=== PATIENT | male | born 1955 | race African-American/Black ===

== ENCOUNTER 2017-06-21 18:51 | Emergency (ER) | payer OTHER ==
[~2017-06-21] VITALS: Ht 182.9 cm; Wt 72.6 kg
--- NOTE | ~2017-06-21 | CR150 ---
[facility] A Service of [facility] & [facility] RADIOLOGY TEXT RESULTS PATIENT: KIANA BHAT LOCATION: CFTX : 53 UNIT #: [id number] AGE: [address]: Krystal Ellsworth SEX: M ORDER DR: [id number] [facility] [address] [place], [place] [address] [id number] E MR#: [id number] Acc #: [id number] NAME: KIANA BHAT : 1955 SEX: M STUDY DATE/TIME: 06/21/2017 20:38 UNIT: [facility] ROOM: STUDY DESCRIPTION: CR Hip Min 2 Views Lt Attending Physician: Krystal Ellsworth Pa-C Ordering Physician: Krystal Ellsworth Pa-C Primary Care Physician: Primary Care Physician No MEDICAL IMAGING REPORT This report is preliminary unless electronic signature is present EXAM Left hip HISTORY Left hip pain for 6 days after fall. TECHNIQUE AP view pelvis and lateral view left hip obtained. FINDINGS Extensive vascular stents in the iliac arteries and on the left side, stents extend down the common femoral region. There is no hip fracture visible. There is degenerative change in the left hip with osteophyte formation. IMPRESSION Bilateral hip degenerative changes. No fracture visible. Dictated by... Parker Anglin M.D. THIS IS AN ELECTRONICALLY VERIFIED REPORT Parker Anglin M.D. at 06/22/2017 7:58 PM FEL/pcl TD: 06/22/2017 17:27 JOB #: [id number] MEDICAL IMAGING REPORT Page 1 of 1 COPY
--- NOTE | ~2017-06-21 | CR181 ---
[facility] A Service of [facility] & [facility] RADIOLOGY TEXT RESULTS PATIENT: KIANA BHAT LOCATION: CFTX : 53 UNIT #: [id number] AGE: [address]: Krystal Ellsworth SEX: M ORDER DR: [id number] [facility] [address] [place], [place] [address] [id number] E MR#: [id number] Acc #: [id number] NAME: KIANA BHAT : 1955 SEX: M STUDY DATE/TIME: 06/21/2017 20:41 UNIT: [facility] ROOM: STUDY DESCRIPTION: CR Lumbar Spine 2 or 3 Views Attending Physician: Krystal Ellsworth Pa-C Ordering Physician: Krystal Ellsworth Pa-C Primary Care Physician: No Primary Care Physician MEDICAL IMAGING REPORT This report is preliminary unless electronic signature is present EXAM Lumbar spine, three-view series. INDICATIONS Fall 6 days ago with low back pain. FINDINGS Three views of the lumbar spine were obtained. There is some anterior ossified formation at L3-4 and 4-5. There is no fracture or subluxation. IMPRESSION Mild degenerative changes. No evidence of acute injury. Dictated by... Parker Anglin M.D. THIS IS AN ELECTRONICALLY VERIFIED REPORT Parker Anglin M.D. at 06/22/2017 7:58 PM KAILA/christian TD: 06/22/2017 17:56 JOB #: [id number] MEDICAL IMAGING REPORT Page 1 of 1 COPY
[2017-06-21] MEDS ORDERED: COREG6.25 M1 PO (20:32)
[2017-06-21] MEDS ORDERED: AMBIEN10 MG PO (20:32)
[2017-06-21] MEDS ORDERED: COZAAR100 MG PO (20:33)
[2017-06-21] MEDS ORDERED: OMEPRAZOLE40 M1 PO (20:33)
[2017-06-21] MEDS ORDERED: LOMOTIL 2.5-0.1 EACH PO (20:34)
[2017-06-21] MEDS ORDERED: LANOXIN125 MCG PO (20:35)
[2017-06-21] MEDS ORDERED: NORVASC10 MG PO (20:37)
[2017-06-21] MEDS ORDERED: ZOLOFT50 MG PO (20:37)
[2017-06-21] MEDS ORDERED: LODINE500 MG PO (20:38)
== END 2017-06-21 21:11 | disposition home or self-care (01) ==
LOC: CED 18:51 → CFTX 18:51
DX: S39.012A Strain of muscle, fascia and tendon of lower back, initial encounter (principal); S70.02XA Contusion of left hip, initial encounter; E11.9 Type 2 diabetes mellitus without complications; I10 Essential (primary) hypertension; Z79.899 Other long term (current) drug therapy; W19.XXXA Unspecified fall, initial encounter
CPT/HCPCS: 72100; 73502; 99283